=== PATIENT | male | born 1990 | race Caucasian/White ===

== ENCOUNTER 2018-02-26 17:33 | Emergency (ER) | payer MEDICAID, OTHER ==
[~2018-02-26] VITALS: Ht 170.2 cm; Wt 74.8 kg
[2018-02-26 18:04] VITALS: BP 144/95
--- NOTE | 2018-02-26 19:23 | NUR ---
PT AMBULATED TO BED 1. GAVE REPORT TO CLAUDETTE BOLANOS
--- NOTE | 2018-02-26 19:54 | NUR ---
PT C/O MIDDLE BACK PAIN THAT RADIATES TO NECK STARTING THIS AM. PT STATES PAIN THIS AM WAS 9/10 AT THIS TIME C/O 4/10 PAIN. PT STATES HE TOOK 2 PAIN PILLS TODAY BUT DOES NOT RECALL WHAT THEY ARE AND STATES THEY DID NOT HELP. PT DENIES TRAUMA OR LIFTING NAY HEAVY OBJECTS. PT LAYING IN BED, IN NO APPARENT ACUTE DISTRESS. NO PMH, NKDA
[2018-02-26] MEDS ORDERED: IBUPROFEN 600 MG TAB PO ONE (20:10)
[2018-02-26 20:52] VITALS: BP 132/85
--- NOTE | 2018-02-26 20:54 | NUR ---
Patient discharged with v/s stable. Written and verbal after care instructions given and explained. Patient alert, oriented and verbalized understanding of instructions. Ambulatory with steady gait. All questions addressed prior to discharge. ID band removed. Patient advised to follow up with PMD. Rx of IBU given. Patient educated on indication of medication including possible reaction and side effects. Opportunity to ask questions provided and answered.
== END 2018-02-26 20:54 | disposition home or self-care (01) ==
LOC: MED 17:33
DX: M54.6 Pain in thoracic spine (principal); M54.2 Cervicalgia
CPT/HCPCS: 99282

== ENCOUNTER 2018-05-30 16:56 | Emergency (ER) | payer SELFPAY ==
[~2018-05-30] VITALS: Ht 170.2 cm; Wt 72.6 kg
[2018-05-30 17:06] VITALS: BP 119/80
--- NOTE | 2018-05-30 17:50 | NUR ---
PT AMBULATED TO ED BED 2
--- NOTE | 2018-05-30 17:57 | NUR ---
C/O INTERMITTENT BURNING SENSATION UPON VOIDING WITH SUPRAPUBIC DISCOMFORT X 1 MONTH DENIES DISCHARGE FROM [facility]X---DENIES RX---NONE
[2018-05-30 18:44] LABS: APPEARANCE,URINE CLEAR (CLEAR); BILIRUBIN,URINE NEGATIVE (NEGATIVE); BLOOD, URINE 1+ (NEGATIVE); COLOR,URINE YELLOW (YELLOW); LEUKOCYTE ESTERASE ,URINE NEGATIVE (NEGATIVE); NITRITE, URINE NEGATIVE (NEGATIVE); PH,URINE 5.5 (5.0-9.0); UGLUCOSE NEGATIVE (NEGATIVE)
--- NOTE | 2018-05-30 18:56 | NUR ---
PT. RETING COMFORTABLY IN BED, RR EVEN AND UNLABORED. BED IN LOWEST POSITION. FAMILY MEMBER AT BEDSIDE. WILL CONTINUE TO MONITOR.
[2018-05-30 19:13] LABS: RBC,URINE 0-5 (RARE) /HPF (0-5)
--- NOTE | 2018-05-30 19:15 | NUR ---
GOT REPORT FROM LUIS MIGUEL GAUTHIER. PT VSS, ACUTE DISTRESS AT THIS TIME.
--- NOTE | 2018-05-30 19:15 | NUR ---
Pt report given to LUIS MIGUEL AVELAR . Transfer of care at this time.
[2018-05-30] MEDS ORDERED: PHENAZOPYRIDINE 100 MG TAB PO ONE (19:40)
--- NOTE | 2018-05-30 20:24 | NUR ---
Patient discharged with v/s stable. Written and verbal after care instructions given and explained. Patient alert, oriented and verbalized understanding of instructions. Ambulatory with steady gait. All questions addressed prior to discharge. ID band removed. Patient advised to follow up with PMD. Rx of PYRIDIUM 100 MG, CIPRO 500 MG given. Patient educated on indication of medication including possible reaction and side effects. Opportunity to ask questions provided and answered.
[2018-05-30 20:25] VITALS: BP 126/81
== END 2018-05-30 20:24 | disposition home or self-care (01) ==
LOC: MED 16:56
DX: N39.0 Urinary tract infection, site not specified (principal); F12.10 Cannabis abuse, uncomplicated
CPT/HCPCS: 81001; 87086; 99284